=== PATIENT | male | born 1985 | race Caucasian/White ===

== ENCOUNTER 2018-11-08 12:07 | Emergency (ER) | payer OTHER ==
[~2018-11-08] VITALS: Ht 175.3 cm; Wt 89.3 kg
[2018-11-08 12:08] VITALS: BP 136/95
[2018-11-08] MEDS ORDERED: AMOX875T2 (12:16)
[2018-11-08] MEDS ORDERED: BENZ-18 (12:16)
[2018-11-08] MEDS ORDERED: LORA-674 (12:16)
== END 2018-11-08 13:03 | disposition home or self-care (01) ==
LOC: M ED 12:07
DX: J06.9 Acute upper respiratory infection, unspecified (principal); R03.0 Elevated blood-pressure reading, without diagnosis of hypertension